=== PATIENT | female | born 1990 | race Caucasian/White ===

== ENCOUNTER 2024-02-26 22:55 | Emergency (ER) | payer OTHER, SELFPAY ==
[2024-02-26 22:58] VITALS: BP 135/96; PULSE 95; TEMP 36.7; O2SAT 99; BMI 28.3
--- NOTE | 2024-02-26 23:04 | ED.GENADUL1 ---
HPI HPI - General Adult General Chief complaint: Extremity Problem, Nontraumatic Stated complaint: ARM PAIN Time Seen by Provider: 02/26/24 22:58 Source: patient Mode of arrival: walk-in Limitations: no limitations History of Present Illness HPI narrative: 34-year-old female presents for a red area on her left forearm. She believes she was bitten by a spider about 24 hours ago. Its become a bit red and she has had no drainage. She states she has an autoimmune disorder and wanted to get it checked. No vomiting and it was a single bite. Related Data Previous Rx's ?Medication ?Instructions ?Recorded cephalexin 500 mg capsule 500 mg PO QID 10 days #40 caps 02/26/24 sulfamethoxazole 800 1 tab PO BID 10 days #20 tabs 02/26/24 mg-trimethoprim 160 mg tablet (Bactrim DS) Allergies Allergy/AdvReac Type Severity Reaction Status Date / Time moxifloxacin [From Avelox] Allergy Hives Verified 02/26/24 22:58 zofran Allergy Hives Uncoded 02/26/24 22:58 Opioid HPI Opioid Management Most Recent Opioid Data: No Data to Display Review of Systems ROS Narrative A ten point review of systems is negative except as noted above. Exam Narrative Exam Narrative: Nurses note and vital signs reviewed and patient is not hypoxic. General: The patient appears well and in no apparent distress. Skin: Warm, dry, no pallor noted. There is no rash noted. Head: Normocephalic, atraumatic Eye: Normal conjunctiva, no drainage Ears, Nose, Mouth, and Throat: oral mucosa is moist. Nares patent. Cardiovascular: Regular Rate and Rhythm Respiratory: Patient is in no distress, no accessory muscle use GI: Soft and nontender Musculoskeletal: Left forearm has an area of erythema approximately 3 cm in diameter and then extending out another 2 cm is a fainter area of erythema, circular. No abscess or drainage present. Neurological: Awake and alert Psychiatric: Cooperative Constitutional Vital Signs, click to edit/add: Last Vital Signs Temp 98.1 F 02/26/24 22:58 Pulse 95 H 02/26/24 22:58 Resp 18 02/26/24 22:58 BP 135/96 H 02/26/24 22:58 Pulse Ox 99 02/26/24 22:58 O2 Del Method Room Air 02/26/24 22:58 Course Vital Signs Vital signs: Vital Signs Temperature 98.1 F 02/26/24 22:58 Pulse Rate 95 H 02/26/24 22:58 Respiratory Rate 18 02/26/24 22:58 Blood Pressure 135/96 H 02/26/24 22:58 Pulse Oximetry 99 02/26/24 22:58 Oxygen Delivery Method Room Air 02/26/24 22:58 Temperature 98.1 F 02/26/24 22:58 Pulse Rate 95 H 02/26/24 22:58 Respiratory Rate 18 02/26/24 22:58 Blood Pressure 135/96 H 02/26/24 22:58 Pulse Oximetry 99 02/26/24 22:58 Oxygen Delivery Method Room Air 02/26/24 22:58 Medical Decision Making MDM Narrative Medical decision making narrative: My clinical impression is that she has cellulitis. She was given Bactrim and Keflex here and prescribed the same. Warm soaks were recommended. Treatment diagnosis and follow-up were discussed with the patient. Differential Diagnosis Differential Diagnosis: Cellulitis, abscess Discharge Plan Discharge Stand Alone Forms: Portal Instructions Chief Complaint: Extremity Problem, Nontraumatic Clinical Impression: Cellulitis Patient Disposition: Home, Self-Care Time of Disposition Decision: 23:03 Condition: Good Mode of Transportation: Private Vehicle Prescriptions / Home Meds: New sulfamethoxazole-trimethoprim [Bactrim DS] 800-160 mg tablet 1 tab PO BID 10 Days Qty: 20 0RF cephalexin 500 mg capsule 500 mg PO QID 10 Days Qty: 40 0RF Print Language: Hong Konger Instructions: Cellulitis (ED), Warm Compress or Soak (ED) Referrals: KRISSY VILLEDA [Primary Care Provider] - 1 week
--- NOTE | 2024-02-26 23:06 | PC.NURSE ---
Area of redness and swelling to right upper arm, skin intact, no drainage.
[2024-02-26] MEDS: CEPHALEXIN 500 MG CAPSULE PO (23:25)
[2024-02-26] MEDS: SULFAMETHOXAZOLE/TRIMETHOPRIM 800-160 MG TABLET 1 TAB PO (23:25)
== END 2024-02-26 23:29 | disposition home or self-care (01) ==
PROVIDERS: Emergency Provider Emergency Medicine; PCP Family Medicine
DX: L03.114 Cellulitis of left upper limb (principal)
CPT/HCPCS: 99283

== ENCOUNTER 2024-09-23 18:48 | Emergency (ER) | payer OTHER, SELFPAY ==
[2024-09-23 18:56] VITALS: BP 162/84; PULSE 88; TEMP 37; O2SAT 98; BMI 38.0
--- NOTE | 2024-09-23 19:12 | ED_ITS ---
HPI - Dental/Oral General Chief complaint: Dental/Oral Stated complaint: DENTAL ABCESS AND PAIN Time Seen by Provider: 09/23/24 18:49 Mode of arrival: walk-in Limitations: no limitations History of Present Illness HPI Narrative: Patient is a 34-year-old female presents to the ER with complaints of dental pain patient localizes the pain to tooth #11 tenderness to the gum in the left upper anterior mouth no visible swelling patient feels she has a dental abscess forming she reports having recurrent dental pain for many months and generalized dental decay for several years following treatment for lupus with immune suppression. Patient states she was previously on clindamycin which helped and recently started Augmentin with a prescription at bedside started on September 19. Patient notes that has not helped with pain she has a former history of drug abuse and cannot take anything narcotic she is requesting a Toradol prescription but curious if she would need IV antibiotics. Patient states she recently got over a bronchitis episode. Patient appears nontoxic in no acute distress. No fever, Vital stable pt denies chance of MD Complaint: Reports tooth pain Location: Tooth # (11) Onset (ago): week(s) Duration: constant Exacerbating factors: chewing, cold, heat, drinking fluids and other (smoking) Context: history of dental caries Related Data Previous Rx's ?Medication ?Instructions ?Recorded cephalexin 500 mg capsule 500 mg PO QID 10 days #40 caps 02/26/24 sulfamethoxazole 800 1 tab PO BID 10 days #20 tabs 02/26/24 mg-trimethoprim 160 mg tablet (Bactrim DS) ketorolac 10 mg tablet 10 mg PO Q8H PRN pain 4 days #12 09/23/24 tabs Allergies Allergy/AdvReac Type Severity Reaction Status Date / Time moxifloxacin (From Avelox) Allergy Hives Verified 02/26/24 22:58 zofran Allergy Hives Uncoded 02/26/24 22:58 Review of Systems ROS Constitutional Denies: fever or chills Ears, nose, mouth, and throat Reports: mouth pain; Denies: throat pain, neck pain, throat swelling, difficulty swallowing or swelling of lips/tongue Cardiovascular Denies: chest pain Respiratory Denies: shortness of breath Gastrointestinal Denies: abdominal pain or nausea Musculoskeletal Denies: back pain or neck pain Neurological Denies: headache PFSH PFSH Social History Little interest or pleasure in doing things: not at all Feeling down, depressed, or hopeless: not at all Exam Narrative Exam Narrative: Nurses notes reviewed and patient is noted to be non-hypoxic. General: The patient is comfortable, alert and oriented x3, well appearing, non toxic in no apparent distress. Head: Atraumatic and normocephalic. Eyes: Normal conjunctiva, no exudates. ENT: The oropharynx is normal. No pharyngeal erythema, uvular edema, tonsillar exudates, asymmetry or trismus. Uvula is midline. Mouth is normal to inspection With the exception of a pain on percussion of the tooth # 11 which is broken with dental caries and eroded to gum line . + surrounding ginvival and tooth pain and diffuse dental caries noted multiple teeth. . There is no evidence of facial asymmetry or abscess formation. Abscess in not palpated around upper palate. Floor of the mouth is soft. No tenderness in the submental or submandibular space. No tongue elevation or deviation. The patient has no evidence of periapical abscess, gingivitis, ANUG or other acute pathology. Airway is patent. Neck: The neck demonstrates normal range of motion. No meningeals signs are present. No stridor. No masses or lymphandenopathy noted. Respiratory: No acute distress, lungs are clear to auscultation, + wheezing that clears with cough., no rhonchi, or rales noted. No stridor or retractions are no cata. Cardiovascular: Regular rate and rhythm Skin: The skin exam shows no evidence of rashes Neuro: Alert and oriented x4, normal speech Lymphatic: No cervical lymphadenopathy Constitutional Vital Signs, click to edit/add: Last Vital Signs Temp 98.6 F 09/23/24 18:56 Pulse 88 09/23/24 18:56 Resp 18 09/23/24 18:56 BP 162/84 H 09/23/24 18:56 Pulse Ox 98 09/23/24 18:56 Course Vital Signs Vital signs: Vital Signs Temperature 98.6 F 09/23/24 18:56 Pulse Rate 88 09/23/24 18:56 Respiratory Rate 18 09/23/24 18:56 Blood Pressure 162/84 H 09/23/24 18:56 Pulse Oximetry 98 09/23/24 18:56 Temperature 98.6 F 09/23/24 18:56 Pulse Rate 88 09/23/24 18:56 Respiratory Rate 18 09/23/24 18:56 Blood Pressure 162/84 H 09/23/24 18:56 Pulse Oximetry 98 09/23/24 18:56 MDM - Dental/Oral MDM Narrative Medical decision making narrative: Patient admits to longstanding history of dental caries and dental decay she has multiple broken teeth she has tenderness around tooth #11 but there is no visible or palpable abscess. She was previously on clindamycin and currently on Augmentin. We discussed exacerbating factors such as her smoking and the chronicity of her symptoms warranting evaluation by dentist/oral surgeon. Patient states she has trouble finding providers that accept her insurance she is looking to get multiple extractions. I do not feel she warrants any IV antibiotics and her symptoms are likely more related to dental carry than infection given her history of lupus and immunocompromise I recommend she continue her Augmentin prescription as previously prescribed as she is on day 5 and we will supplement her with IM Toradol for pain and oral Toradol tablets along with topical dental analgesia. She is given the name of multiple dental clinics that we will work with her insurance. Should her symptoms worsen or new symptoms develop she is encouraged to return to the ER for reevaluation. The patient is to followup with primary care physician/ Dental clinic in next 1- 3 days or to return to the emergency department should any of the signs or symptoms worsen or new symptoms develop. Patient had questions answered. The patient agrees with the following Diagnosis and Treatment plan and the patient will be discharged home. Discharge Plan Discharge Chief Complaint: Dental/Oral Clinical Impression: Dental caries, Pain, dental Patient Disposition: Home, Self-Care Time of Disposition Decision: 19:13 Condition: Good Prescriptions / Home Meds: New ketorolac 10 mg tablet 10 mg PO Q8H PRN (Reason: pain) 4 Days Qty: 12 0RF No Action sulfamethoxazole-trimethoprim [Bactrim DS] 800-160 mg tablet 1 tab PO BID 10 Days Qty: 20 0RF cephalexin 500 mg capsule 500 mg PO QID 10 Days Qty: 40 0RF Print Language: Icelandic Instructions: Toothache (ED) Additional Instructions: Please use Dental sheet to establish timely follow up Cont with Current Augment prescription Referrals: MERARI GOSS [Physician] - As soon as possible
[2024-09-23] MEDS: BENZOCAINE 30 ML, lidocaine HCL 15 ML MM (19:37)
[2024-09-23] MEDS: KETOROLAC TROMETHAMINE 60 MG/2 ML VIAL IM (19:38)
--- NOTE | 2024-09-23 19:44 | PC.NURSE ---
i gave this patient verbal and paper discharge and 1 e-script, and this patient voices yes to understanding these. at time of discharge this patient voices no concerns and shows no signs of distress
== END 2024-09-23 19:45 | disposition home or self-care (01) ==
PROVIDERS: Emergency Provider Emergency Medicine; PCP Family Medicine
DX: K02.9 Dental caries, unspecified (principal); K08.89 Other specified disorders of teeth and supporting structures; F19.11 Other psychoactive substance abuse, in remission; S02.5XXA Fracture of tooth (traumatic), initial encounter for closed fracture; F17.200 Nicotine dependence, unspecified, uncomplicated; D84.9 Immunodeficiency, unspecified
CPT/HCPCS: 96372; 99284; J1885